=== PATIENT | female | born 2000 ===

== ENCOUNTER 2022-09-03 07:42 | Emergency (ER) | payer OTHER ==
[~2022-09-03] VITALS: Ht 162.6 cm; Wt 39.6 kg
[~2022-09-03 07:42] MED LIST: OMEP20ER PO; ONDA4ODT MM
[2022-09-03] MEDS ORDERED: ALMACONE SUSPE355 ML PO (08:42)
[2022-09-03] MEDS ORDERED: OMEP20ER PO (08:42)
== END 2022-09-03 08:48 | disposition home or self-care (01) ==
LOC: ER 07:42
DX: K29.70 Gastritis, unspecified, without bleeding (principal); R11.2 Nausea with vomiting, unspecified; R19.7 Diarrhea, unspecified; Z88.8 Allergy status to other drugs, medicaments and biological substances
CPT/HCPCS: A9270; J1790

== ENCOUNTER 2023-02-05 12:09 | Emergency (ER) | payer OTHER ==
[~2023-02-05] VITALS: Ht 162.6 cm; Wt 81.7 kg
[~2023-02-05 12:09] MED LIST changes: +ALMACONE SUSPE355 ML PO
[2023-02-05 12:20] VITALS: BP 116/71
== END 2023-02-05 14:38 | disposition home or self-care (01) ==
LOC: ER 12:09
DX: S00.03XA Contusion of scalp, initial encounter (principal); W22.8XXA Striking against or struck by other objects, initial encounter; Z88.8 Allergy status to other drugs, medicaments and biological substances; Z79.899 Other long term (current) drug therapy
CPT/HCPCS: 70450; 99283-25; A9270; J1100

== ENCOUNTER 2023-03-19 17:42 | Emergency (ER) | payer OTHER ==
[~2023-03-19] VITALS: Ht 162.6 cm; Wt 81.7 kg
[2023-03-19 19:24] VITALS: BP 97/73
== END 2023-03-19 20:23 | disposition left against medical advice (07) ==
LOC: ER 17:42
DX: R51.9 Headache, unspecified (principal); Z88.8 Allergy status to other drugs, medicaments and biological substances
CPT/HCPCS: 96372; 99283-25; A9270; J1630; J1885; Q0164

== ENCOUNTER 2023-07-23 15:21 | Emergency (ER) | payer OTHER ==
[~2023-07-23] VITALS: Ht 162.6 cm; Wt 59.0 kg
[2023-07-23 16:18] VITALS: BP 135/87
[2023-07-23] MEDS ORDERED: AMOCLA875 PO (16:25)
[2023-07-23] MEDS ORDERED: IBUP800 PO (16:25)
== END 2023-07-23 16:40 | disposition home or self-care (01) ==
LOC: ER 15:21
DX: K02.9 Dental caries, unspecified (principal); K04.7 Periapical abscess without sinus; F17.200 Nicotine dependence, unspecified, uncomplicated; Z88.8 Allergy status to other drugs, medicaments and biological substances; Z79.899 Other long term (current) drug therapy
CPT/HCPCS: 99282

== ENCOUNTER 2023-08-06 21:02 | Emergency (ER) | payer OTHER ==
[~2023-08-06] VITALS: Ht 162.6 cm; Wt 83.9 kg
[~2023-08-06 21:02] MED LIST changes: +AMOCLA875 PO; +IBUP800 PO
[2023-08-06 21:12] VITALS: BP 119/65
[2023-08-06] MEDS ORDERED: Ketorolac Tromethamine 15mg Vial IM ONE (22:50)
[2023-08-06] MEDS ORDERED: AMOCLA875 PO (22:53)
[2023-08-07] MEDS ORDERED: CYMBALTA30 M2 PO (00:45)
[2023-08-07] MEDS ORDERED: TRAZ100 (00:45)
== END 2023-08-06 23:10 | disposition home or self-care (01) ==
LOC: ER 21:02
DX: K08.89 Other specified disorders of teeth and supporting structures (principal); F17.200 Nicotine dependence, unspecified, uncomplicated; Z88.8 Allergy status to other drugs, medicaments and biological substances; Z79.899 Other long term (current) drug therapy
CPT/HCPCS: 99282

== ENCOUNTER → 2023-12-05 | Outpatient (CLI) | payer OTHER ==
[~2023-12-05] MED LIST changes: +CYCL10 PO; +CYMBALTA30 M2 PO; +Keppra250 MG; +SUMA25 PO; +TRAZ100
[2023-12-05 16:01] LABS: Bacterial Vaginosis PCR Positive (NEGATIVE); Candida Group, PCR NOT DETECTED (NOT DETECT); Candida glabrata-krusei, PCR NOT DETECTED (NOT DETECT)
[2023-12-08 14:37] LABS: APTIMA MEDIA TYPE Unisex Swab; C. TRACHOMATIS BY TMA Negative (Negative); N. GONORRHOEAE BY TMA Negative (Negative); SPECIMEN SOURCE Vaginal; T. VAGINALIS BY TMA Negative (Negative)
== END | disposition home or self-care (01) ==
LOC: LAB SHORT 10:17 → LAB 10:17
PROVIDERS: Nurse Practitioner Family
DX: N89.8 Other specified noninflammatory disorders of vagina (principal); R10.2 Pelvic and perineal pain
CPT/HCPCS: 87086; 87481; 87491; 87591; 87661; 87801